=== PATIENT | female | born 1950 | race Caucasian/White ===

== ENCOUNTER → 2023-11-25 09:56 | Outpatient (REF) | payer OTHER, SELFPAY | LOC: HWRAD 09:56 | PROVIDERS: ATTENDING PHYSICIAN Physician Assistant | DX: R91.8 Other nonspecific abnormal finding of lung field (principal) | CPT/HCPCS: 71250 ==

== ENCOUNTER 2024-05-07 11:45 | Inpatient (IN) | payer OTHER, SELFPAY ==
[2024-05-05] VITALS (7 sets, daily range): BP systolic 128–140; BP diastolic 77–88; PULSE 63–95; BMI 25.2
[2024-05-05 20:58] LABS: % Basophils 0.9 % (0-2); % Eosinophils 1.2 % (0-6); % Immature Granulocytes 0.1 % (0-0.5); % Lymphocytes 25.6 % (20.5-51.1); % Monocytes 10.5 % (1.7-9.3); % Neutrophils 61.7 % (42.2-75.2); Absolute Basophils 0.1 10^3/uL (0-0.2); Absolute Eosinophils 0.1 10^3/uL (0-0.7); Absolute Lymphocytes 1.7 10^3/uL (1.2-3.4); Absolute Monocytes 0.7 10^3/uL (0.1-0.6); Absolute Neutrophils 4.1 10^3/uL (1.4-6.5); Hematocrit 36.5 % (37.0-47.0); Hemoglobin 12.8 g/dL (12.0-16.0); Mean Corp Hgb Conc. 35.1 g/dL (33.0-37.0); Mean Corpuscular Hgb 32.5 pg (27.0-31.0); Mean Corpuscular Volume 92.6 fL (81.0-99.0); Mean Platelet Volume 9.8 fL (7.4-10.4); Nucleated Red Blood Cells % 0 %; Platelet Count 290 10^3/uL (130-400); Red Blood Cell Count 3.94 10^6/uL (4.20-5.40); Red Cell Dist. Width 14.3 % (11.5-14.5); White Blood Cell Count 6.7 10^3/uL (4.8-10.8)
[2024-05-05 21:15] LABS: ALT (SGPT) 13 U/L (0-35); AST (SGOT) 26 U/L (14-36); Albumin 4.4 g/dl (3.5-5.0); Alkaline Phosphatase 76 U/L (38-126); Blood Urea Nitrogen 13 mg/dl (7-17); Calcium 9.6 mg/dl (8.4-10.2); Carbon Dioxide 23 mmol/L (22-30); Chloride 97 mmol/L (98-107); Glucose 90 mg/dl (70-99); Potassium 4.7 mmol/L (3.5-5.1); Sodium 132 mmol/L (135-145); Total Bilirubin 0.3 mg/dl (0.2-1.3); Total Protein 7.3 g/dl (6.3-8.2); eGFR > 60.00
--- NOTE | 2024-05-05 22:44 | ED.GENMED ---
History of Present Illness
General
Chief Complaint: Dizziness
Source: patient
Exam Limitations: none
Time Seen by Provider: 05/05/24 22:34
Nursing documentation reviewed up to this point in time: agreed with
History of Present Illness
History of Present Illness:
Vital signs are stable. Patient not hypoxic
Nursing note reviewed. I agree with nursing documentation up to this point in time.
Home Meds and allergies reviewed.
NUMBER AND COMPLEXITY OF PROBLEMS ADDRESSED AT THE ENCOUNTER
� Chronic conditions affecting care: Hyponatremia, balance issues hypothyroid, GERD
� Acute Exacerbation and/or Progression of Chronic Illness: Balance issues
� Differential Diagnosis includes: Dizziness, vertigo, posterior stroke
AMOUNT AND/OR COMPLEXITY OF DATA TO BE REVIEWED AND ANALYZED
I performed an independent evaluation of the following and my interpretation is:
EKG: EKG shows normal sinus rhythm rate 71 with normal intervals, normal axis. No evidence of acute ischemia present. When compared with previous EKG dated August 31, 2018, similar morphology noted.
Pulse Ox: Not Hypoxic
Rider Ticket Worker: Sinus Rhythm
CT:
X-rays:
Ultrasound:
Laboratory Studies: Sodium is 132
Other:
Review of other/old records:
Clinical information was obtained by an independent historian:
Prescriptions/Medications Considered but not given:
Further testing considered but not performed:
RISK OF COMPLICATIONS AND/OR MORBIDITY OR MORTALITY OF PATIENT MANAGEMENT
Social determinants of health affecting care: Good Social Support
Discussion with other providers:
Escalation of care including admission/observation vs risk of discharge considered: After being observed in the emergency department, patient is stable for discharge.
CRITICAL CARE NOTE:
Total Time (exclusive of procedures):
Update:
Phy Exam
Physical Exam
Physical Exam:
Physical Exam
Vital signs and allergy list reviewed and agreed with.
GENERAL: Alert , in minimal apparent distress while lying flat
EYE: pupils equal, EOMI, anicteric
NECK: Supple, no significant adenopathy. No masses. Trachea midline
ENT: Oropharynx is clear, mmm.
CARDIAC: Regular rate and rhythm . No M/R/G
LUNGS: Clear breath sounds bilaterally, no acute respiratory distress, no wheezes/rales/rhonchi
ABDOMEN: Soft, without focal tenderness, no r/g,
NEUROLOGICAL: Alert and oriented, no focal neuro deficits. Dizziness with any head movement
SKIN: Warm and dry, skin intact.
MUSCULOSKELETAL: No edema, well perfused. Moves all 4 extremities
PSYCH: Normal and appropriate interaction.
Course
Orders/Labs/Results
Orders:
Orders
05/05/24 20:30
Electrocardiogram (*1) Urgent
Reason for Study: Chest Pain
CT Head W/o Iv Contrast Urgent
Comment:
Reason For Exam: dizziness
EKG- Treatment ONCE
05/05/24 20:45
Complete Blood Count/With Diff Urgent
Comprehensive Metabolic Panel Urgent
05/05/24 22:44
Orthostatic VS- Treatment ONCE
05/05/24 23:00
0.9% Sodium Chloride 1000 ml [Nss] 1,000 ml IV 250 mls/hr
05/05/24 23:10
TSH Reflex To Free T4 Urgent
05/06/24 00:56
Aspirin 325 mg PO NOW STA
05/06/24 01:05
Meclizine [Antivert] 12.5 mg PO NOW STA
05/06/24 02:46
Admit/Transfer Patient As Directed
Co-Sign Provider:
Level of Care: Observation services
Assign to:: Telemetry
Physician / Group: hospitalist
Diagnosis: dizziness
Reason for Telemetry: Syncope
Date to Stop Telemetry: 05/08/24
Time to Stop Telemetry: 11:00
PRN Pain Medication Management As Directed
May give lesser potent ordered pain med per pt: Yes
preference::
Protocol:: Medication orders for pain may be administered in a
manner that supports deferring to patient preference
when the pt is:
- Requesting an ordered lesser potent pain medication.
Least to most potent pain medications are defined
as: acetaminophen < NSAID < tramadol < opioids
(morphine, oxycodone, hydromorphone).
- Requesting a lesser dose of the same medication IF
ORDERED.
- Requesting a less intrusive route of administration
if both routes are prescribed by the provider (PO <
IV).
05/06/24 02:47
Code Status As Directed
Resuscitation Status: Full Code
05/06/24 03:19
0.9% Sodium Chloride 1000 ml [Nss] 1,000 ml IV 100 mls/hr
Acetaminophen [Tylenol] 650 mg PO Q4HPRN PRN
Bisacodyl [Dulcolax] 10 mg RECTAL [id number] PRN
Docusate W/Senna [Senokot-S] 1 tablet PO BIDPRN PRN
Meclizine [Antivert] 12.5 mg PO Q8HPRN PRN
Ondansetron Injectable [Zofran] 4 mg IV Q6HPRN PRN
Polyethylene Glycol Powder [Miralax] 17 grams PO DAILYPRN PRN
05/06/24 03:19
MRI Brain [MR Brain Without Contrast] Routine
Comment:
Reason For Exam: eval for stroke in setting of acute central dizzin
Recent pill cam endoscopy?: No
Activity As Directed
Activity Level: With Assistance
Orthostatic Vital Signs As Directed
Orthostatic VS Frequency: Daily
Vital Signs As Directed
Frequency: Per unit guidelines
Pt Eval And Treat Routine
Activity Level: With Assistance
DX Deep Vein Thrombosis Video Routine
05/06/24 Breakfast
Regular
At Your Request: Limited, Principal Software Architect Required
Levothyroxine [Synthroid] 88 mcg PO DAILY @ 0600
05/06/24 06:17
Basic Metabolic Panel IN AM
05/06/24 08:00
Lisinopril [Zestril] 20 mg PO DAILY
05/06/24 18:00
Enoxaparin Sodium [Lovenox] 40 mg SC QPM
Rosuvastatin Calcium [Crestor] 10 mg PO QPM
05/08/24 11:00
DC Protocol for Telemetry ONCE
Abnormal Lab Results
05/05/24
20:45
RBC 3.94 L 10^6/uL
(4.20-5.40)
Hct 36.5 L %
(37.0-47.0)
MCH 32.5 H pg
(27.0-31.0)
Absolute Monos (auto) 0.7 H 10^3/uL
(0.1-0.6)
Monocytes % 10.5 H %
(1.7-9.3)
Sodium 132 L mmol/L
(135-145)
Chloride 97 L mmol/L
(98-107)
05/05/24 20:45
05/05/24 20:45
Vital Signs
Initial and Last Documented VS:
Initial Vital Signs
Temp Pulse Resp BP Pulse Ox
97.9 F 70 19 128/83 99
05/05/24 20:28 05/05/24 20:28 05/05/24 20:28 05/05/24 20:28 05/05/24 20:28
Last Documented Vital Signs
Temp Pulse Resp BP Pulse Ox
98.5 F 107 22 138/73 95
05/06/24 03:27 05/06/24 03:27 05/06/24 03:27 05/06/24 06:00 05/06/24 06:00
*Critical Care Note
Total Time (30-74mins, 75-104mins- exclusive of procedures): Not Applicable
Update Note
Update Note:
IMPRESSION:
No acute intracranial abnormality noted.
Atrophy.
Electronically signed by Olivier Weller MD, 05/05/2024 9:39 PM
ED Attending Note
-
Portions of this chart may have been created with voice recognition software.� Occasional wrong word or��sound alike� substitutions may have occurred due to the inherent limitations of voice recognition software.
Discharge Plan
Departure
Patient Disposition: Admit
Date of Disposition: 05/06/24
Time of Disposition: 00:56
Admit to: Telemetry
Presentation/result/management discussed w/ accepting MD/DO: Hospitalist
Discharge Problem:
Dizziness
Interventions
Interventions:
*Risk Screen - Suicide Last Done: 05/05/24 20:28
*General Assessment Last Done: 05/05/24 20:28
*Neglect/Abuse Screening Last Done: 05/05/24 20:28
*ED COVID-19 Vaccine History Last Done: 05/05/24 22:41
ED- Neurological Assessment Last Done: 05/05/24 22:41
ED Swallowing Screen Last Done: 05/06/24 01:32
[2024-05-05] MEDS: NSS 1000 IV (23:10)
[2024-05-06] VITALS (30 sets, daily range): BP systolic 98–176; BP diastolic 42–103; PULSE 70–131; BMI 25.2
[2024-05-06 00:08] LABS: TSH Reflex To Free T4 2.51 uIU/ml (0.47-4.68)
[2024-05-06] MEDS: ANTIVERT 12.5 MG PO (01:23)
[2024-05-06] MEDS: ASPIRIN 325 MG PO (01:23)
--- NOTE | 2024-05-06 02:35 | HPS.HSE ---
Family Physician
-
Family Physician: Corina Thomas
Chief Complaint
-
Acute episode of dizziness
History of Present Illness
This is an 74-year-old female with past medical history of hypertension, hyperlipidemia, hypothyroid, GERD, prior DVT, osteoarthritis status post bilateral hip replacements who presents to the emergency department with acute episode of dizziness.
Patient reports that symptoms started when she tried to get out of bed. She already ambulates with a walker. She said she tried to get her bed and place her hands on a walker when she felt really lightheaded and had to fall back on her bed. Since
then she reports that she has been having dizziness even at rest. She reports that she has waves of dizziness. She denies any nausea or vomiting. She denies any diaphoresis. She denies having palpitations. She denies any chest pain. She denies
shortness of breath or dyspnea on exertion. She denies any ankle swelling or calf tenderness. He denies any recent episodes of dysuria or hematuria. Denies any incontinence. Patient reported feeling better after receiving a dose of meclizine.
She denies any prior episodes of orthostatic hypotension, syncope or loss of consciousness.
In the emergency department blood pressure was 108/65 with a pulse of 70. She was afebrile. Head CT was negative. ECG showed normal sinus rhythm at rate of [address] or T wave changes. CBC was completely normal. Chemistries were
only notable for a sodium of 132 but otherwise unremarkable.
Repeated orthostatic exam was reported as positive in the emergency department.
Medical History
Past Medical History
Past Medical History: Reports GERD, HTN and Hypercholesterolemia
Past Surgical History: Reports Orthopedic (Left large arthroplasty, right total hip arthroplasty.)
Social History
Tobacco: Smoker
Alcohol: Occasional
Drug: None
Personal:
Living: Alone
Employment: Retired
Family History
Family History: Not pertinent
Allergies / Home Medications
Allergies reflects when Allergies were last updated in [employer].
Home Medications with original date entered in [employer]
Allergy/Medication List:
Allergies
Allergy/AdvReac Type Severity Reaction Status Date / Time
penicillin G Allergy Lumps on Verified 09/20/18 08:05
tongue,
vomiting
Penicillins Allergy Lumps on Verified 09/20/18 08:05
tongue,
Vomiting
Home Medications
levothyroxine 88 mcg tablet (Synthroid) 88 mcg PO DAILY 08/31/18
omeprazole 20 mg capsule,delayed release 20 mg PO QPM 08/31/18
rosuvastatin 10 mg tablet 10 mg PO QPM 08/31/18
amlodipine 2.5 mg tablet 5 mg PO DAILY ##0 09/21/18
lisinopril 20 mg-hydrochlorothiazide 25 mg tablet 1 ea PO DAILY ##0 09/21/18
Review of Systems
-
History Source: Patient
Constitutional: Reports No Symptoms
EENT: Reports No Symptoms
Respiratory: Reports No Symptoms
Cardiac: Reports No Symptoms
Abdomen/GI: Reports No Symptoms
: Reports No Symptoms
Musculoskeletal: Reports No Symptoms
Skin: Reports No Symptoms
Neurological: Reports Dizzy
Endocrine: Reports No Symptoms
Hematologic/Lymphatic: Reports No Symptoms
Psych: Reports No Symptoms
Physical Exam
Vital Signs
Vital Signs
Temp Pulse Resp BP Pulse Ox
97.9 F 70 19 122/65 96
05/05/24 20:28 05/05/24 20:28 05/05/24 20:28 05/06/24 02:07 05/06/24 02:07
Physical Exam
General: Well Developed, Well Nourished and Comfortable
HEENT: NormoCephalic, Anicteric, Moist mucous membranes and Atraumatic
Respiratory: Clear
Cardiac: S1/S2 and Regular Rhythm
GI: Soft, Non Tender, Non Distended and Normal Bowel Sounds
Rectal: Deferred by Provider
Genito-urinary: Deferred by me
Musculoskeletal: No Clubbing, No Cyanosis and No Edema
Skin: Warm and Dry
Neuro: AO x 3 and Nonfocal/grossly intact
Psych: Anxious
Laboratory Results
-
05/05/24 20:45
05/05/24 20:45
Laboratory Results
Total Bilirubin 0.3 mg/dl (0.2-1.3) 05/05/24 20:45
AST 26 U/L (14-36) 05/05/24 20:45
ALT 13 U/L (0-35) 05/05/24 20:45
Alkaline Phosphatase 76 U/L (38-126) 05/05/24 20:45
Data Reviewed
-
CT Scan: Report Reviewed by me
Medical Tests (Nuc Med, Echo, EKG etc): Image Personally Visualized and interpreted
Lab Data: Labs Reviewed by me
Old Records: Reviewed
Impression/Plan
-
IMPRESSION:
Patient with orthostatic dizziness without nystagmus. Denies overt vertigo but appeared improved after meclizine. CT head is negative. Orthostatic symptoms reproducible in ED and she remains anxious and at higher risk of fall. ECG and blood
testing are negative. Suspect orthostasis related to antihypertensive versus possible central vertigo.
PLAN:
1. Dizziness - Orthostatic, cardiac vs central vertigo
- admit to telemetry observation
- IV fluids overnight
- hold amlodipine and hctz.
- continue lisinopril 20 for now
- orthostatic vs
- check mri brain in am
- PT eval
2. Hyponatremia - Mild at 132. Unlikely etiology of symptoms
- hold hctz
- IV fluids overnight and recheck
DVT PPX - lovenox sq
Code status - Full Code
[2024-05-06] MEDS: NSS 1000 IV ×3 (04:06→23:38)
[2024-05-06] MEDS: SYNTHROID 88 MCG PO (06:14)
[2024-05-06 06:56] LABS: Blood Urea Nitrogen 12 mg/dl (7-17); Calcium 8.8 mg/dl (8.4-10.2); Carbon Dioxide 25 mmol/L (22-30); Chloride 100 mmol/L (98-107); Estimated Creatinine Clearance 55 ml/min; Glucose 90 mg/dl (70-99); Potassium 4.3 mmol/L (3.5-5.1); Sodium 132 mmol/L (135-145); eGFR > 60.00
[2024-05-06] MEDS: ZESTRIL 20 MG PO (08:33)
[2024-05-06] MEDS: NSS IV (09:00)
[2024-05-06 11:41] LABS: Cortisol, Random 11.9 ug/dl
--- NOTE | 2024-05-06 13:51 | W.PN.HOSP.TC ---
Today's Communication/Plan
-
PT
MRI of the brain
Assessment / Plan
Assessment / Plan
73-year-old female with acute onset of dizziness she ambulates with a walker she felt dizzy while trying to get out of bed she received meclizine and started feeling better. She has no symptoms at present. No chest pain or shortness of breath
CVS: S1-S2 normal
Chest: CTA B/L
Abdomen: Soft, NT / Bowel sounds present
Extremities: No edema, normal pulses
WATER PROOFER: Non focal exam
# Dizziness
EKG sinus rhythm no ischemia
Received IV fluids
Orthostatic vital signs-negative
Hold hydrochlorothiazide and amlodipine
Check MRI of the brain (premedicate with Ativan as she is very anxious)
PT evaluation
# Hyponatremia-mild
Hold hydrochlorothiazide and do not restart-discussed with patient and niece
# Hypothyroidism-Synthroid
# Hypertension continue Norvasc and lisinopril. Do not restart hydrochlorothiazide
# Hyperlipidemia- Statin
# GERD-verify dose of PPI and continue
# History of pulmonary nodules last CT was November 2023
# Compression deformities T12-L1 vertebra
# DVT following a hip replacement and Coumadin then . Not now. She got the second hip done but did not have any blood clots
# Smoker-cessation counseling done
# DVT prophylaxis-Lovenox
# Full code
D/W Niece at bed sied
D/W RN
Anticipated Discharge: Within 24 hours
Subjective/Interval History
-
Date of Service: May 06, 2024
Objective Data
-
Labs:
Laboratory Results
05/06/24
06:17
Sodium 132 L
Potassium 4.3
Chloride 100
Carbon Dioxide 25
BUN 12
Creatinine 0.8
Glucose 90
Calcium 8.8
Vital Signs:
Vital Signs
Temp Pulse Resp BP Pulse Ox
98.5 F 97 24 142/83 96
05/06/24 03:27 05/06/24 12:00 05/06/24 12:00 05/06/24 12:00 05/06/24 12:00
I&O
05/05/24 05/06/24 05/07/24
06:59 06:59 06:59
Output Total 1620 / 1620
Balance -1620 / -1620
[2024-05-06] MEDS: NSS (PRESERVATIVE FREE) 0.25 ML IV (14:34)
[2024-05-06] MEDS: ATIVAN 0.5 MG IV (14:34)
--- NOTE | 2024-05-06 14:45 | PTCARENOTE ---
Pt pre-medicated with Ativan for MRI per orders. Pt transported to MRI
[2024-05-06 14:52] LABS: Urine Sodium 125 mmol/L (30-90)
[2024-05-06 15:17] LABS: Osmolality Urine 356 mOsm/kg (300-900)
--- NOTE | 2024-05-06 15:55 | PTCARENOTE ---
Pt back from MRI
--- NOTE | 2024-05-06 16:31 | W.PN.UPDATE ---
Update Note
Progress Note Update
PT eval noted. Hold discharge due to symptoms with PT
MRI neg for CVA
[2024-05-06 17:08] LABS: COVID-19 Antigen Negative (Negative)
[2024-05-06] MEDS: LOVENOX 40 MG SC (17:13)
[2024-05-06] MEDS: CRESTOR 10 MG PO (17:13)
[2024-05-06 19:06] LABS: Osmolality Serum 274 mOsm/kg (275-300)
[2024-05-06] MEDS: TYLENOL 650 MG PO (19:47)
--- NOTE | 2024-05-06 20:41 | W.PN.UPDATE ---
Update Note
Progress Note Update
Reported by the nursing staff, RT foot/dorsal area swelling and painful.
On exam, patient denied hitting her foot recently. Dorsal area is swelling, painful to touch and limited ROM due to pain. +pulse and normal capillary refill.
Will order RT foot x-ray.
[2024-05-07] VITALS (8 sets, daily range): BP systolic 103–157; BP diastolic 60–78
[2024-05-07] MEDS: TYLENOL 650 MG PO ×2 (00:16→09:04)
[2024-05-07] MEDS: SYNTHROID 88 MCG PO (06:14)
[2024-05-07] MEDS: ZESTRIL 20 MG PO (08:10)
[2024-05-07] MEDS: NSS 1000 IV (08:11)
[2024-05-07] MEDS: PROTONIX 40 MG PO (09:04)
--- NOTE | 2024-05-07 11:37 | W.PN.HOSP.TC ---
Today's Communication/Plan
-
Treat constipation
Urinalysis with culture
Ultrasound of the kidneys and bladder
Start steroids
Assessment / Plan
Assessment / Plan
73-year-old female with acute onset of dizziness she ambulates with a walker she felt dizzy while trying to get out of bed she received meclizine and started feeling better. She has no symptoms at present. No chest pain or shortness of breath.
CVS: S1-S2 normal
Chest: CTA B/L
Abdomen: Soft, NT / Bowel sounds present
Extremities: Right dorsal foot with arthritis, redness and edema
SILICA FILTER OPERATOR: Non focal exam
# Right foot arthritis flare/gout flare
Start a course of steroids
She was not able to do PT because of this today
# Acute urinary retention status post Borges placement last night with hematuria
Check ultrasound of the kidneys and bladder
Check urinalysis reflex to culture to rule out UTI
Voiding trial per protocol
# Dizziness
EKG sinus rhythm no ischemia
Orthostatic vital signs-negative
Hold hydrochlorothiazide and amlodipine
MRI of the brain -unremarkable
# Hyponatremia-mild
Hold hydrochlorothiazide and do not restart-discussed with patient and niece
# Hypothyroidism-Synthroid
# Hypertension continue Norvasc and lisinopril. Do not restart hydrochlorothiazide
# Hyperlipidemia- Statin
# GERD-verify dose of PPI and continue
# History of pulmonary nodules last CT was November 2023
# Compression deformities T12-L1 vertebra
# DVT following a hip replacement and Coumadin then . Not now. She got the second hip done but did not have any blood clots
# Smoker-cessation counseling done
# DVT prophylaxis-Lovenox
# Full code
D/W Niece at bed side
D/W RN
Anticipated Discharge: Within 24 hours
Subjective/Interval History
-
Date of Service: May 07, 2024
Objective Data
-
Vital Signs:
Vital Signs
Temp Pulse Resp BP Pulse Ox
98.1 F 77 22 136/70 97
05/07/24 11:18 05/07/24 10:00 05/07/24 10:00 05/07/24 08:10 05/07/24 10:45
I&O
05/06/24 05/07/24 05/08/24
06:59 06:59 06:59
Intake Total 2460 / 2460 420 / 420
Output Total 1620 / 1620 1350 / 1350
Balance -1620 / -1620 1110 / 1110 420 / 420
[2024-05-07 12:13] LABS: Urine Albumin 1+ (Neg - Trace); Urine Bilirubin Negative (Negative); Urine Character Slightly Cloudy (Clear); Urine Color Red; Urine Glucose Negative (Negative); Urine Ketone Negative (Negative); Urine Leukocyte 1+ (Negative); Urine Nitrite Positive (Negative); Urine Occult Blood 4+ (Negative); Urine Urobilinogen Negative (Neg - 1+)
[2024-05-07] MEDS: SENOKOT PO (12:16)
[2024-05-07] MEDS: PEPCID 20 MG PO ×2 (12:16→19:34)
[2024-05-07] MEDS: DELTASONE 40 MG PO (12:16)
[2024-05-07 12:22] LABS: Blood Urea Nitrogen 10 mg/dl (7-17); Calcium 8.4 mg/dl (8.4-10.2); Carbon Dioxide 25 mmol/L (22-30); Chloride 100 mmol/L (98-107); Estimated Creatinine Clearance 62 ml/min; Glucose 124 mg/dl (70-99); Potassium 3.6 mmol/L (3.5-5.1); Sodium 131 mmol/L (135-145); eGFR > 60.00
[2024-05-07 12:53] LABS: Urine Red Blood Cell >100 /HPF (0-2); Urine Squamous Cell 0-2 /LPF (Few)
[2024-05-07 12:54] LABS: Urine Bacteria Moderate (Negative)
[2024-05-07 13:05] LABS: Uric Acid 3.6 mg/dl (2.5-6.2)
[2024-05-07] MEDS: LOVENOX 40 MG SC (17:28)
[2024-05-07] MEDS: CRESTOR 10 MG PO (17:28)
--- NOTE | 2024-05-07 17:30 | PTCARENOTE ---
Pt was received from ED. Pt was pulled over to the unit bed due to right foot pain. Pt is AAOx3, VSS. Pt resting in bed, some discomfort on right foot but not requiring a pain med. Call carrasco in reach. Pt ordering dinner.
[2024-05-07] MEDS: SENOKOT 17.2 MG PO (19:34)
[2024-05-07] MEDS: MONUROL 3 GM PO (19:34)
[2024-05-08] MEDS: XALATAN OPHTHALMIC SOLUTION 1 DROP BOTH EYES ×2 (00:04→22:01)
[2024-05-08 03:40] VITALS: BP 143/62
[2024-05-08] MEDS: SYNTHROID 88 MCG PO (05:05)
[2024-05-08] MEDS: SENOKOT 17.2 MG PO ×2 (07:44→19:28)
[2024-05-08] MEDS: DELTASONE 40 MG PO (07:44)
[2024-05-08] MEDS: PROTONIX 40 MG PO (07:44)
[2024-05-08] MEDS: PEPCID 20 MG PO ×2 (07:44→19:28)
[2024-05-08] MEDS: MIRALAX 17 GRAMS PO (07:44)
[2024-05-08] MEDS: ZESTRIL 20 MG PO (07:44)
[2024-05-08 07:55] VITALS: BP 141/67
[2024-05-08 11:30] VITALS: BP 129/80; BP 149/77; BP 160/70; PULSE 76; PULSE 82; PULSE 83
[2024-05-08 15:30] VITALS: BP 109/55
--- NOTE | 2024-05-08 16:21 | W.PN.HOSP.TC ---
Today's Communication/Plan
-
check BMP
Give lasix if beneeded
Voiding trial in am
ECOLI uti-
Assessment / Plan
Assessment / Plan
73-year-old female with acute onset of dizziness she ambulates with a walker she felt dizzy while trying to get out of bed she received meclizine and started feeling better. She has no symptoms at present. No chest pain or shortness of breath.
CVS: S1-S2 normal
Chest: CTA B/L
Abdomen: Soft, NT / Bowel sounds present no redness today
MANAGER CHANGE: Non focal exam
# Right foot arthritis flare/gout flare
Started a course of steroids
feels much better
# Acute urinary retention status post Borges placement last night with hematuria
USS OK
E Coli UTI- S/P Fosfomycin
Voiding trial per protocol
# Dizziness
EKG sinus rhythm no ischemia
Orthostatic vital signs-negative
Hold hydrochlorothiazide and amlodipine
MRI of the brain -unremarkable
# Hyponatremia-mild
Hold hydrochlorothiazide and do not restart-discussed with patient and niece
# Hypothyroidism-Synthroid
# Hypertension continue Norvasc and lisinopril. Do not restart hydrochlorothiazide
# Hyperlipidemia- Statin
# GERD-PPI
# History of pulmonary nodules last CT was November 2023
# Compression deformities T12-L1 vertebra
# DVT following a hip replacement and Coumadin then . Not now. She got the second hip done but did not have any blood clots
# Smoker-cessation counseling done
# DVT prophylaxis-Lovenox
# Full code
D/W RN
Anticipated Discharge: Within 24 hours
Subjective/Interval History
-
Date of Service: May 08, 2024
Objective Data
-
Labs:
Laboratory Results
05/08/24 05/08/24
16:07 21:00
Sodium Pending Cancelled
Potassium Pending Cancelled
Chloride Pending Cancelled
Carbon Dioxide Pending Cancelled
BUN Pending Cancelled
Creatinine Pending Cancelled
Glucose Pending Cancelled
Calcium Pending Cancelled
Vital Signs:
Vital Signs
Temp Pulse Resp BP Pulse Ox
98.3 F 76 16 149/77 98
05/08/24 11:30 05/08/24 11:30 05/08/24 11:30 05/08/24 11:30 05/08/24 11:30
I&O
05/07/24 05/08/24 05/09/24
06:59 06:59 06:59
Intake Total 2460 / 2460 900 / 900
Output Total 1350 / 1350 650 / 650
Balance 1110 / 1110 250 / 250
[2024-05-08 16:31] LABS: Blood Urea Nitrogen 17 mg/dl (7-17); Calcium 8.8 mg/dl (8.4-10.2); Carbon Dioxide 22 mmol/L (22-30); Chloride 99 mmol/L (98-107); Estimated Creatinine Clearance 55 ml/min; Glucose 163 mg/dl (70-99); Potassium 4.3 mmol/L (3.5-5.1); Sodium 130 mmol/L (135-145); eGFR > 60.00
[2024-05-08] MEDS: MILK OF MAGNESIA 30 ML PO (16:38)
[2024-05-08] MEDS: LASIX 20 MG IV (16:43)
[2024-05-08] MEDS: CRESTOR 10 MG PO (18:12)
[2024-05-08] MEDS: LOVENOX 40 MG SC (18:12)
[2024-05-08 19:40] VITALS: BP 133/66
[2024-05-08 23:50] VITALS: BP 131/72
[2024-05-09 03:32] VITALS: BP 147/72
[2024-05-09] MEDS: SYNTHROID 88 MCG PO (05:24)
[2024-05-09 06:50] VITALS: BP 159/78
[2024-05-09 06:51] VITALS: BP 155/89; BP 159/78; BP 164/79; PULSE 66; PULSE 67; PULSE 89
[2024-05-09] MEDS: DELTASONE 40 MG PO (07:48)
[2024-05-09] MEDS: PROTONIX 40 MG PO (07:48)
[2024-05-09] MEDS: PEPCID 20 MG PO ×2 (07:48→20:59)
[2024-05-09] MEDS: SENOKOT 17.2 MG PO (07:48)
[2024-05-09] MEDS: ZESTRIL 20 MG PO (07:49)
[2024-05-09] MEDS: ANTIVERT 12.5 MG PO ×2 (07:51→17:01)
[2024-05-09] MEDS: MIRALAX PO (07:54)
--- NOTE | 2024-05-09 10:24 | PTCARENOTE ---
Received pt awake, alert, oriented, without c/o pain. NSR on monitor, maintaining RA O2 sats. Pt has occasional complaints of vertigo, medicated with PRN meds for the vertigo. Right foot swollen, tender to touch and difficult to bear weight. Skin is
intact. Plan of care updated with pt. Pt currently resting comfortably.
[2024-05-09] MEDS: DULCOLAX 10 MG RECTAL (12:31)
[2024-05-09] MEDS: CITROMA 300 ML PO (12:31)
[2024-05-09 12:53] LABS: Blood Urea Nitrogen 16 mg/dl (7-17); Calcium 9.1 mg/dl (8.4-10.2); Carbon Dioxide 28 mmol/L (22-30); Chloride 93 mmol/L (98-107); Estimated Creatinine Clearance 55 ml/min; Glucose 163 mg/dl (70-99); Potassium 4.2 mmol/L (3.5-5.1); Sodium 130 mmol/L (135-145); eGFR > 60.00
[2024-05-09] MEDS: SAMSCA 15 MG PO (14:43)
--- NOTE | 2024-05-09 14:47 | W.PN.HOSP.TC ---
Today's Communication/Plan
-
Samsca
Follow sodium tomorrow
Magnesium citrate
Watch for voiding
Assessment / Plan
Assessment / Plan
73-year-old female with acute onset of dizziness she ambulates with a walker she felt dizzy while trying to get out of bed she received meclizine and started feeling better. She has no symptoms at present. No chest pain or shortness of breath.
CVS: S1-S2 normal
Chest: CTA B/L
Abdomen: Soft, NT / Bowel sounds present no redness today
RECEIVING COORDINATOR: Non focal exam
# Right foot arthritis flare/gout flare
Started a course of steroids
feels much better
# Acute urinary retention status post Borges placement last night with hematuria
USS OK
E Coli UTI- S/P Fosfomycin
Voiding trial per protocol-Borges removed today. Watch for voiding
# Constipation-mag citrate ordered
# Dizziness
EKG sinus rhythm no ischemia
Orthostatic vital signs-negative
Hold hydrochlorothiazide and amlodipine
MRI of the brain -unremarkable
# Hyponatremia-mild
Hold hydrochlorothiazide and do not restart-discussed with patient and niece
1 dose of Samsca
# Hypothyroidism-Synthroid
# Hypertension continue Norvasc and lisinopril. Do not restart hydrochlorothiazide
# Hyperlipidemia- Statin
# GERD-PPI
# History of pulmonary nodules last CT was November 2023
# Compression deformities T12-L1 vertebra
# DVT following a hip replacement and Coumadin then . Not now. She got the second hip done but did not have any blood clots
# Smoker-cessation counseling done
# DVT prophylaxis-Lovenox
# Full code
D/W RN
Anticipated Discharge: Within 24 hours
Subjective/Interval History
-
Date of Service: May 09, 2024
Objective Data
-
Labs:
Laboratory Results
05/09/24
12:28
Sodium 130 L
Potassium 4.2
Chloride 93 L
Carbon Dioxide 28
BUN 16
Creatinine 0.8
Glucose 163 H
Calcium 9.1
Vital Signs:
Vital Signs
Temp Pulse Resp BP Pulse Ox
98.2 F 66 18 159/78 96
05/09/24 06:50 05/09/24 07:49 05/09/24 06:50 05/09/24 07:49 05/09/24 06:50
I&O
05/08/24 05/09/24 05/10/24
06:59 06:59 06:59
Intake Total 900 / 900 1440 / 1440
Output Total 650 / 650 1550 / 1550 1300 / 1300
Balance 250 / 250 -110 / -110 -1300 / -1300
[2024-05-09 15:20] VITALS: BP 159/77
[2024-05-09] MEDS: LOVENOX 40 MG SC (17:00)
[2024-05-09] MEDS: CRESTOR 10 MG PO (17:01)
[2024-05-09] MEDS: XALATAN OPHTHALMIC SOLUTION 1 DROP BOTH EYES (20:59)
[2024-05-09] MEDS: SENOKOT PO (21:03)
[2024-05-09 23:57] VITALS: BP 143/81
[2024-05-10] MEDS: SYNTHROID 88 MCG PO (06:31)
[2024-05-10 08:25] VITALS: BP 167/88
[2024-05-10] MEDS: MIRALAX PO (08:56)
[2024-05-10] MEDS: DELTASONE 30 MG PO (08:57)
[2024-05-10] MEDS: ZESTRIL 20 MG PO (08:57)
[2024-05-10] MEDS: SENOKOT PO (08:57)
[2024-05-10] MEDS: PEPCID 20 MG PO (08:58)
[2024-05-10] MEDS: PROTONIX 40 MG PO (08:58)
[2024-05-10 09:27] VITALS: BP 131/62; BP 139/60; BP 145/66; BP 145/87; PULSE 79; PULSE 83; PULSE 92
[2024-05-10 10:37] LABS: Blood Urea Nitrogen 17 mg/dl (7-17); Calcium 9.5 mg/dl (8.4-10.2); Carbon Dioxide 27 mmol/L (22-30); Chloride 100 mmol/L (98-107); Estimated Creatinine Clearance 55 ml/min; Glucose 117 mg/dl (70-99); Potassium 3.8 mmol/L (3.5-5.1); Sodium 137 mmol/L (135-145); eGFR > 60.00
--- NOTE | 2024-05-10 11:02 | W.PN.HOSP.TC ---
Today's Communication/Plan
-
Discharge
Assessment / Plan
Assessment / Plan
73-year-old female with acute onset of dizziness she ambulates with a walker she felt dizzy while trying to get out of bed she received meclizine and started feeling better. She has no symptoms at present. No chest pain or shortness of breath.
CVS: S1-S2 normal
Chest: CTA B/L
Abdomen: Soft, NT / Bowel sounds present no redness today
PROGRAMMING SPECIALIST: Non focal exam
# Right foot arthritis flare/gout flare
Started a course of steroids
feels much better
# Acute urinary retention status post Borges placement last night with hematuria
USS OK
E Coli UTI- S/P Fosfomycin
Voiding good.
# Constipation-Resolved
# Dizziness
EKG sinus rhythm no ischemia
Orthostatic vital signs-negative
Hold hydrochlorothiazide and restart amlodipine
MRI of the brain -unremarkable
# Hyponatremia-mild
Hold hydrochlorothiazide and do not restart-discussed with patient and niece
S/P 1 dose of Samsca 05/09/24
Sodium normal.
# Hypothyroidism-Synthroid
# Hypertension continue Norvasc and lisinopril. Do not restart hydrochlorothiazide
# Hyperlipidemia- Statin
# GERD-PPI
# History of pulmonary nodules last CT was November 2023
# Compression deformities T12-L1 vertebra
# DVT following a hip replacement and Coumadin then . Not now. She got the second hip done but did not have any blood clots
# Smoker-cessation counseling done
# DVT prophylaxis-Lovenox
# Full code
D/W RN
She is requesting prescription for 90 days which will be sent to her pharmacy
Will do Lasix as needed for lower extremity edema as that was the reason why she was on HCTZ.
More than 30 minutes spent in discharge including
Final examination of the patient
Summarizing hospital stay
Instructions for continuing care to all relevant caregivers
Preparation of discharge records, prescriptions, and referral forms
Total time spent (in minutes): 34 min
Anticipated Discharge: Today
Subjective/Interval History
-
Date of Service: May 10, 2024
Objective Data
-
Labs:
Laboratory Results
05/10/24 05/10/24
07:24 09:41
Sodium Cancelled 137
Potassium Cancelled 3.8
Chloride Cancelled 100
Carbon Dioxide Cancelled 27
BUN Cancelled 17
Creatinine Cancelled 0.8
Glucose Cancelled 117 H
Calcium Cancelled 9.5
Vital Signs:
Vital Signs
Temp Pulse Resp BP Pulse Ox
98 F 75 18 167/88 98
05/10/24 08:25 05/10/24 08:57 05/10/24 08:25 05/10/24 08:57 05/10/24 08:25
I&O
05/09/24 05/10/24 05/11/24
06:59 06:59 06:59
Intake Total 1440 / 1440
Output Total 1550 / 1550 1500 / 1500
Balance -110 / -110 -1500 / -1500
--- NOTE | 2024-05-10 11:09 | W.DS.TRANS ---
Addendum entered and electronically signed by Marco Carmen MD 05/10/24 11:35:
Dictation- [id number]
Original Note:
DC Summary - Supervisor Beet End
-
Discharge Instructions:
Discharge Diagnosis/Procedures Hyponatremia
Urinary retention
UTI
Gout flare
Hypertension
Hypothyroidism
Hyperlipidemia
GERD
Compression fractures T12-L1
Diet Restrict fluids to 64 oz
Activity As tolerated
Driving Restrictions As prior to admission
Other Services VN
Instructions:
Stand-Alone Forms:
Changes to Home Medications: Yes
Discharge Medications:
DC Medications w/original date entered in [facility]
levothyroxine 88 mcg tablet (Synthroid) 88 mcg PO DAILY Thyroid 08/31/18
omeprazole 20 mg capsule,delayed release 20 mg PO DAILY Gastrointestinal Issue 08/31/18
rosuvastatin 10 mg tablet 10 mg PO QPM High Cholesterol 08/31/18
amlodipine 2.5 mg tablet 2.5 mg PO DAILY Blood Pressure 05/06/24
latanoprost 0.005 % eye drops 1 drp BOTH EYES HS Eye Condition 05/07/24
furosemide 20 mg tablet (Lasix) 20 mg PO TUFR PRN fluid retention #30 tabs 05/10/24
lisinopril 20 mg tablet 20 mg PO DAILY Blood pressure #90 tabs 05/10/24
meclizine 12.5 mg tablet 12.5 mg PO Q8HPRN PRN dizziness #30 tabs 05/10/24
polyethylene glycol 3350 17 gram oral powder packet 17 g PO DAILY Constipation #0 ea 05/10/24
prednisone 10 mg tablet See Rx Instructions .Route .COMPLEX Gout #15 tabs 05/10/24
Home Medication Changes
HCTZ stopped
Lasix, meclizine, MiraLAX, prednisone-are new
Pending Results: No
[2024-05-10] MEDS: MONUROL 3 GM PO (12:37)
[2024-05-10] MEDS: NORVASC 2.5 MG PO (13:03)
--- NOTE | 2024-05-10 14:27 | VNURNOTE ---
Home Health Liaison spoke with patient to discuss [facility] nurse/therapy, visits, schedule and homebound status. Patient is agreeable and understands that visits at home will be 2-3 x per week to assess and teach medical management. Patient is aware
that [facility] will contact them for start of care in 1-2 days after discharge from . [facility] referral completed in [facility].
== END 2024-05-10 14:00 | disposition home health service (06) | DRG 690 ==
LOC: 4 EAST ACU 11:45
PROVIDERS: Emergency Medicine; ADMITTING PHYSICIAN Internal Medicine; ATTENDING PHYSICIAN Hospitalist; EMERGENCY PHYSICIAN Student in an Organized Health Care Education/Training Program; FAMILY PHYSICIAN Physician Assistant
DX: N39.0 Urinary tract infection, site not specified (principal); E87.1 Hypo-osmolality and hyponatremia; M10.9 Gout, unspecified; I10 Essential (primary) hypertension; E03.9 Hypothyroidism, unspecified; E78.00 Pure hypercholesterolemia, unspecified; K21.9 Gastro-esophageal reflux disease without esophagitis; K59.00 Constipation, unspecified; F17.200 Nicotine dependence, unspecified, uncomplicated; Z86.718 Personal history of other venous thrombosis and embolism; Z96.643 Presence of artificial hip joint, bilateral; Z88.0 Allergy status to penicillin; B96.20 Unspecified Escherichia coli [E. coli] as the cause of diseases classified elsewhere; Z11.52 Encounter for screening for COVID-19
CPT/HCPCS: 70450; 70551; 73620; 76770; 80048; 80053; 81003; 81015; 82533; 83930; 83935; 84300; 84443; 84550; 85025; 87071; 87086; 87186; 87811; 93005; 97116; 97530; 99285

== ENCOUNTER → 2024-11-28 09:30 | Outpatient (REF) | payer OTHER, SELFPAY | LOC: HWRAD 09:30 | PROVIDERS: ATTENDING PHYSICIAN Physician Assistant | DX: R91.1 Solitary pulmonary nodule (principal) | CPT/HCPCS: 71250 ==